=== PATIENT | male | born 1945 | race Hispanic/Latino ===

== ENCOUNTER → 2018-08-12 | Outpatient (CLI) | payer OTHER | END | disposition home or self-care (01) | LOC: OIH 15:24 | PROVIDERS: ATTEND Family Medicine | DX: M51.36 Other intervertebral disc degeneration, lumbar region (principal); M43.8X6 Other specified deforming dorsopathies, lumbar region; M48.061 Spinal stenosis, lumbar region without neurogenic claudication | CPT/HCPCS: 72100; 73502 ==

== ENCOUNTER → 2019-06-01 | Outpatient (CLI) | payer OTHER | END | disposition home or self-care (01) | LOC: RAH 13:00 | PROVIDERS: ATTEND Family Medicine | DX: S09.90XA Unspecified injury of head, initial encounter (principal); R90.82 White matter disease, unspecified; G31.89 Other specified degenerative diseases of nervous system; Z87.891 Personal history of nicotine dependence; W11.XXXA Fall on and from ladder, initial encounter | CPT/HCPCS: 70450 ==

== ENCOUNTER → 2024-04-06 | Outpatient (CLI) | payer OTHER | END | disposition home or self-care (01) | LOC: RAH 09:41 | PROVIDERS: ATTEND Family Medicine | DX: M47.814 Spondylosis without myelopathy or radiculopathy, thoracic region (principal); M19.071 Primary osteoarthritis, right ankle and foot; M77.31 Calcaneal spur, right foot; M25.571 Pain in right ankle and joints of right foot; M54.6 Pain in thoracic spine | CPT/HCPCS: 72072; 73630 ==

== ENCOUNTER → 2025-07-21 | Outpatient (CLI) | payer OTHER ==
--- NOTE | 2025-07-21 13:45 | NUR ---
MBSS COMPLETED (OUTPATIENT). No aspiration/ deep non-transient penetration after the swallow with pudding thick textures. RECOMMENDATIONS: regular solids (nothing that melts such as pudding, jellos, ice cream), thin liquids and pills whole with liquids as tolerated. COMPENSATORY STRATEGIES: 1. sit upright during oral intake 2. small bites/sips 3. alternate bites/sips 4. extra dry swallows 5. NOTHING THAT MELTS (e.g., ice cream, pudding, jellos). NOTE: Pt complains of globus sensation. DIAGNOSTIC FINDINGS: Pt presented with mild pharyngeal dysphagia characterized by decreased tongue base retraction; delayed pharyngeal response trigger; decreased hyo-laryngeal elevation/excursion evidenced by premature spillage to valleculae; residue on valleculae, pyriform sinuses, and [employer] pharyngeal wall partially cleared with extra dry swallows; decreased pressure generation within the pharynx; enlarged cricopharyngeal muscle with CP Bar noted at C5 level with mild residue sitting above; resulting in deep non-transient penetration after the swallow with pudding thick textures. NO aspirations observed. KIER HAND reviewed results and recommendations with patient. KIER HAND educated patient on risks and consequences of aspiration. Speech therapy warranted at this time to address mild pharyngeal dysphagia. All questions answered. Addendum: 07/22/[address] [facility]LAUDIA MARIEE Amended: Links added.
--- NOTE | 2025-07-21 14:13 | HMCIMG ---
MODIFIED BARIUM SWALLOW W CINE REASON: Dysphagia, unspecified/ Disease of esophagus, unspecified FINDINGS: Fluoroscopic assistance was provided to the speech pathologist while performing examination. For findings and dietary recommendations, refer to speech pathologist's report. FLUORO TIME: 4.0 minutes IMPRESSION: Modified barium swallow as described.
== END | disposition home or self-care (01) ==
LOC: RAH 13:07
PROVIDERS: ATTEND Family Medicine
DX: K21.9 Gastro-esophageal reflux disease without esophagitis (principal); R13.10 Dysphagia, unspecified
CPT/HCPCS: 74230; 92611